=== PATIENT | female | born 1960 | race Two or more races ===

== ENCOUNTER 2016-05-23 14:21 | Emergency (ER) | payer OTHER ==
[2016-05-23] MEDS ORDERED: IBUPROFEN 800 MG TABLET ONE (15:36)
== END 2016-05-23 16:31 | disposition home or self-care (01) ==
LOC: ED 14:21
DX: S16.1XXA Strain of muscle, fascia and tendon at neck level, initial encounter (principal); I10 Essential (primary) hypertension; X99.1XXA Assault by knife, initial encounter; Y92.524 Gas station as the place of occurrence of the external cause; Y99.0 Civilian activity done for income or pay
CPT/HCPCS: 99283 ×2; A9270